=== PATIENT | male | born 1955 | race Caucasian/White ===

== ENCOUNTER 2017-07-13 02:51 | Inpatient (IN) | payer OTHER ==
[~2017-07-13] VITALS: Ht 175.3 cm; Wt 115.0 kg
[2017-07-13 06:06] VITALS: Ht 175.3 cm; Wt 115.0 kg
[2017-07-13 06:18] VITALS: BP 115/53; PULSE 60; RESP 20
[2017-07-13] MEDS ORDERED: BUPR150T18 PO (06:36)
[2017-07-13] MEDS ORDERED: METH10TA2 PO (06:36)
[2017-07-13] MEDS ORDERED: PANT40TA4 PO (06:36)
[2017-07-13] MEDS ORDERED: METH-378 PO (06:36)
[2017-07-13] MEDS ORDERED: FAMO20TA18 PO (06:36)
[2017-07-13] MEDS ORDERED: SPIR25TA PO (06:36)
[2017-07-13] MEDS ORDERED: LACT10SO5 PO (06:36)
[2017-07-13] MEDS ORDERED: FOLI-49 PO (06:36)
[2017-07-13] MEDS ORDERED: FURO40SO PO (06:36)
[2017-07-13] MEDS ORDERED: AMLO5TAB4 PO (06:36)
[2017-07-13] MEDS ORDERED: SENN-53 PO (06:36)
[2017-07-13] MEDS ORDERED: MELA1TAB17 PO (06:36)
[2017-07-13] MEDS ORDERED: [UNRECOGNIZED DRUG - OTHER] (06:36)
[2017-07-13] MEDS ORDERED: DOCU-159 PO (06:36)
[2017-07-13 07:36] VITALS: BP 115/57; RESP 18
[2017-07-13 08:37] LABS: BASOPHILS % 0.2 % (0.0-2.0); EOSINOPHILS # 0.1 10^3/ul (0.0-0.5); EOSINOPHILS % 0.4 % (0.0-7.0); HEMATOCRIT 25.1 % (42.0-52.0); HEMOGLOBIN 8.8 g/dl (14.0-18.0); LYMPHOCYTES # 1.2 10^3/ul (0.8-2.9); LYMPHOCYTES % 10.1 % (15.0-51.0); MEAN CORPUSCULAR HEMOGLOBIN 33.6 pg (29.0-33.0); MEAN CORPUSCULAR HGB CONC 35.1 g/dl (32.0-37.0); MEAN CORPUSCULAR VOLUME 95.8 fl (82.0-101.0); MEAN PLATELET VOLUME 8.7 fl (7.4-10.4); MONOCYTE # 1.2 10^3/ul (0.3-0.9); NEUTROPHIL # 9.2 10^3/ul (1.6-7.5); NEUTROPHILS % 78.7 % (39.0-77.0); PLATELET COUNT 164 10^3/UL (140-415); RED BLOOD COUNT 2.62 10^6/ul (4.70-6.10); RED CELL DISTRIBUTION WIDTH 15.7 % (11.5-14.5); WHITE BLOOD COUNT 11.6 10^3/ul (4.8-10.8)
[2017-07-13 08:50] LABS: ALANINE AMINOTRANSFERASE 31 IU/L (13-69); ALBUMIN 2.1 g/dl (3.3-4.9); ALBUMIN/GLOBULIN RATIO 0.46; ALKALINE PHOSPHATASE 71 IU/L (42-121); ANION GAP 8 (8-16); ASPARTATE AMINO TRANSFERASE 36 IU/L (15-46); BILIRUBIN,INDIRECT 0.6 mg/dl (0-1.1); BILIRUBIN,TOTAL 0.6 mg/dl (0.2-1.3); BLOOD UREA NITROGEN 24 mg/dl (7-20); CALCIUM 8.1 mg/dl (8.4-10.2); CARBON DIOXIDE 29 mmol/L (21-31); CHLORIDE 103 mmol/L (97-110); CREATININE 1.29 mg/dl (0.61-1.24); GLUCOSE 121 mg/dl (70-220); POTASSIUM 4.5 mmol/L (3.5-5.1); SODIUM 135 mmol/L (135-144); TOTAL PROTEIN 6.6 g/dl (6.1-8.1)
[2017-07-13 09:01] LABS: TROPONIN-I < 0.012 ng/ml (0.00-0.12)
[2017-07-13] MEDS ORDERED: PENDING SANTYL ORDER FOR WOUND CARE XX PRN (10:00)
[2017-07-13] MEDS: LACTULOSE 30ML CUP PO SCH ×4 (10:46→21:00)
[2017-07-13] MEDS ORDERED: morphine 2 MG INJ IV PRN (13:30)
[2017-07-13 14:34] VITALS: BP 131/62; RESP 16
[2017-07-13] MEDS ORDERED: METHADONE 5 MG TAB PO ONE ×2 (15:00→21:00)
--- NOTE | 2017-07-13 16:28 | HP ---
Date/Time of Note Date/Time of Note DATE: 07/13/17 TIME: 16:27 Assessment/Plan VTE Prophylaxis VTE Prophylaxis Intervention: SCD's Lines/Catheters IV Catheter Type (from [facility]): Saline Lock Assessment/Plan Assessment/Plan 61-year-old male with: 1. Hepatic encephalopathy, secondary to end-stage liver disease Continue lactulose Check ammonia level and CMP in a.m. Monitor mental status 2. Ascites, status post paracentesis with removal of 6 L of ascitic fluid yesterday, patient still has some distention, will resume diuretics including spironolactone and Lasix as long as renal function and blood pressure tolerates. Sanches catheter placement May need repeat paracentesis in the next 24-48 hours Continue Rocephin for now given slightly elevated white blood cell count, rule out SBP 3. Chronic kidney disease: Creatinine from [place] was 1.46, 1.29 today, resuming diuretics with Sanches catheter in place. 4. Chronic pain, back and abdomen, narcotic dependent, on methadone as an outpatient, will follow pain regimen per outpatient palliative care, will titrate his methadone up as needed for pain control. If needed we will obtain palliative care consult inpatient. 5. Hypertension: D/C Norvasc for now, will maximize diuretics that would also help with blood pressure control and control of ascites. 6. Tobacco use: Nicotine patch as needed. Patient should quit 7. Venous stasis ulcers and bilateral lower extremity lymphedema: Wound care consult in place, volume management. 8. Lung cancer per report, will discuss with which stage, of note the patient is still smoking. 9. Hepatitis C Prophylaxis: Protonix for GI prophylaxis, SCDs to lower extremity for DVT prophylaxis if able to put on Disposition: Pain control, reevaluation in a.m. regarding repeat paracentesis. CODE STATUS: DNR HPI/ROS Admit Date/Time Admit Date/Time Jul 13, 2017 at 05:45 Hx of Present Illness Chief complaint: Abdominal pain, transfer from outside hospital History of presenting illness: This is a 61-year-old male with history of cirrhosis and liver disease, recurrence ascites, hepatic encephalopathy, chronic pain narcotic dependent with previous history of drug use and overdose, who presented at [facility] yesterday with abdominal pain and abdominal distention, he had paracentesis and removal of 6 L of ascitic fluid. In the process he did receive morphine for pain control, by the time he was discharged from the ER according to the family he was mostly pain-free and according to the notes from the emergency department, the patient refused to be admitted then. However when he got home, by 11 PM the reports that to the patient was again in severe pain, but he does have hepatic encephalopathy and has not taken any of his medication for the past 2 days including his methadone. The patient was taken back to [place] emergency department, he was reevaluated and a transferred to [facility] mostly for pain management and further management of his ascites, abdominal distention and hepatic encephalopathy. Ammonia level at admission is 67, patient is on lactulose, he is in significant pain a combination of chronic pain and probable methadone withdrawal. Patient is being restarted on his outpatient regimen with additional morphine for breakthrough pain. Sanches catheter to be placed, ammonia level to be monitored while he is on lactulose, diuretics to be continued, repeat paracentesis in the next 24 hours if needed. I have talked to the and patient's investment recovery technician at the bedside, they agree with the current plan of care. Patient has been told along with his family that we need to restart his methadone if he expects any better pain control. I will also put him on some Rocephin for possible SBP based on slightly elevated white blood cell count on admission. Will monitor closely. ROS Constitutional: disoriented Eyes: no complaints ENT: no complaints Cardiovascular: no complaints Gastrointestinal: other (Distended abdomen), pain (Diffuse abdominal pain) Genitourinary: other (Urinary frequency with some incontinence) Skin: no complaints Neurologic: confusion, other (Encephalopathy) PMH/Family/Social Past Medical History Cirrhosis, end-stage liver disease Hepatic encephalopathy Recurrent ascites Chronic back, abdominal pain on palliative care through [place] pain management, narcotic dependence, on methadone Chronic kidney disease Lung cancer Venous stasis/lymphedema and lower extremity venous stasis ulcers/wounds Hepatitis C Past Surgical History Status post paracentesis 07/12 with removal of 6 L at [facility] Family History Significant Family History: no pertinent family hx Social History Alcohol Use: other (Previous history of alcohol abuse) Smoking Status: Current every day smoker Drug Use: marijuana Exam/Review of Systems Vital Signs Vitals Vital Signs Date Time Temp Pulse Resp B/P Pulse Ox O2 Delivery O2 Flow Rate FiO2 11/13/17 14:34 97.7 72 16 131/62 93 07/13/17 06:18 Room Air Exam Constitutional: alert, distress (Secondary to pain), oriented (x2) Respiratory: clear to auscultation, normal air movement Cardiovascular: nl pulses, regular rate and rhythm Gastrointestinal: distended, soft, tender (Diffuse) Extremities: normal pulses, other (Lymphedema and venous stasis bilateral lower extremity, wrapping in place, patient refused to have his remove it) Neurological: ASSEMBLY OPERATOR II-XII intact, confused, lethargic Labs Result Diagram: 07/13/1780407/13/17804 Medications Medications Current Medications Lactulose (Enulose) 20 gm Q4 PO Last administered on 07/13/17t 10:46; Admin Dose 20 GM; Start 07/13/17 at 09:00 Miscellaneous Information ([facility]) This patient flores... PRN PRN XX WOUND CARE; Start 07/13/17 at 10:00 Methadone HCl (Methadone) 10 mg BID PO ; Start 07/13/17 at 16:00; Status UNV Morphine Sulfate (morphine) 2 mg Q3 PRN IV PAIN LEVEL 6-10; Start 07/13/17 at 18:00 Acetaminophen/ Hydrocodone Bitart ([place] (10/325)) 1 tab Q8H PRN PO PAIN LEVEL 1-5; Start 07/13/17 at 16:30 Carisoprodol (Soma) 350 mg TID PO ; Start 07/13/17 at 21:00; Status UNV Gabapentin (Neurontin) 600 mg TID PO ; Start 07/13/17 at 21:00; Status UNV Ondansetron HCl (Zofran Inj) 4 mg Q6H PRN IV NAUSEA AND/OR VOMITING; Start at 16:30 Acetaminophen (Tylenol Tab) 650 mg Q6H PRN PO PAIN LEVEL 1-3 OR FEVER; Start 07/13/17 at 16:30 Docusate Sodium (Colace) 100 mg Q12H PRN PO CONSTIPATION; Start 07/13/17 at 16 :30 Magnesium Hydroxide (Milk Of Mag) 30 ml DAILY PRN PO CONSTIPATION; Start 07/13 at 16:30 Bisacodyl (Dulcolax Supp) 10 mg DAILY PRN [place] CONSTIPATION; Start 07/13/17 at 16:30 Amlodipine Besylate (Norvasc) 5 mg BID PO ; Start 07/13/17 at 21:00; Status UNV Bupropion HCl (Wellbutrin Sr) 150 mg BID PO ; Start 07/13/17 at 21:00; Status UNV Famotidine (Pepcid) 20 mg BID PO ; Start 07/13/17 at 21:00 Folic Acid (Folic Acid) 1 mg DAILY PO ; Start 07/14/17 at 09:00; Status UNV Senna (Senokot) 1 tab Q12H PRN PO CONSTIPATION; Start 07/13/17 at 16:30; Status UNV Spironolactone 25 mg 25 mg BID PO ; Start 07/13/17 at 21:00; Status UNV Ceftriaxone Sodium (Rocephin) 50 ml @ 100 mls/hr Q24H IVPB ; Start 07/13/17 at 16:30; Status UNV YANDEL SOUZA Jul 13, 2017 16:28
[2017-07-13] MEDS ORDERED: NACL 0.9% 3 ML SYG IV SCH (16:30)
[2017-07-13] MEDS ORDERED: DOCUSATE SODIUM 100 MG CAP PO PRN (16:30)
[2017-07-13] MEDS ORDERED: ACETAMINOPHEN 325 MG TAB PO PRN (16:30)
[2017-07-13] MEDS ORDERED: SENNA TAB PO PRN (16:30)
[2017-07-13] MEDS ORDERED: MAGNESIUM HYDROXIDE 30ML CUP PO PRN (16:30)
[2017-07-13] MEDS ORDERED: BISACODYL 10 MG SUPP PR PRN (16:30)
[2017-07-13] MEDS ORDERED: METHADONE 10 MG TAB PO SCH (17:00)
[2017-07-13] MEDS: CEFTRIAXONE 1 GM/50 ML (PMX) 50 ML IVPB SCH (17:03)
[2017-07-13] MEDS: METHADONE 5 MG TAB PO SCH (17:05)
[2017-07-13] MEDS: FUROSEMIDE 20 MG INJ IV SCH (18:24)
[2017-07-13] MEDS: morphine 2 MG INJ IV PRN ×2 (18:26→23:30)
[2017-07-13 19:49] VITALS: BP 145/70; RESP 20
[2017-07-13] MEDS: FAMOTIDINE 20 MG TAB PO SCH (21:00)
[2017-07-13] MEDS: GABAPENTIN 300 MG CAP PO SCH (21:00)
[2017-07-13] MEDS ORDERED: AMLODIPINE 5 MG TAB PO SCH (21:00)
[2017-07-13] MEDS: CARISOPRODOL 350 MG TAB PO SCH (21:10)
[2017-07-13] MEDS: BUPROPION (SR) 150 MG TAB PO SCH (21:12)
[2017-07-13] MEDS: SPIRONOLACTONE 25 MG TAB PO SCH (21:13)
[2017-07-13] MEDS: HYDROCODONE/APAP (10/325) TAB PO PRN (21:19)
[2017-07-13] MEDS: ONDANSETRON 4 MG INJ IV PRN (21:19)
[2017-07-13 23:20] VITALS: BP 156/70; PULSE 108
[2017-07-14] MEDS: LACTULOSE 30ML CUP PO SCH ×6 (01:00→20:58)
[2017-07-14 02:00] VITALS: BP 142/67; RESP 20
[2017-07-14] MEDS: morphine 2 MG INJ IV PRN ×6 (03:41→22:26)
[2017-07-14] MEDS: HYDROCODONE/APAP (10/325) TAB PO PRN (05:18)
[2017-07-14] MEDS: FUROSEMIDE 20 MG INJ IV SCH ×2 (05:18→17:27)
[2017-07-14] MEDS: ONDANSETRON 4 MG INJ IV PRN ×3 (06:14→21:35)
[2017-07-14 06:41] LABS: ABNORMAL IP MESSAGE 1; BASOPHILS % 0.1 % (0.0-2.0); EOSINOPHILS % 0.1 % (0.0-7.0); HEMATOCRIT 30.8 % (42.0-52.0); HEMOGLOBIN 10.9 g/dl (14.0-18.0); LYMPHOCYTES # 1.1 10^3/ul (0.8-2.9); LYMPHOCYTES % 7.8 % (15.0-51.0); MEAN CORPUSCULAR HEMOGLOBIN 33.6 pg (29.0-33.0); MEAN CORPUSCULAR HGB CONC 35.4 g/dl (32.0-37.0); MEAN CORPUSCULAR VOLUME 95.1 fl (82.0-101.0); MEAN PLATELET VOLUME 9.3 fl (7.4-10.4); MONOCYTE # 1.7 10^3/ul (0.3-0.9); MONOCYTES % 11.3 % (0.0-11.0); NEUTROPHIL # 11.7 10^3/ul (1.6-7.5); NEUTROPHILS % 80.3 % (39.0-77.0); PLATELET COUNT 192 10^3/UL (140-415); POSITIVE DIFF @See below; RED BLOOD COUNT 3.24 10^6/ul (4.70-6.10); RED CELL DISTRIBUTION WIDTH 16.2 % (11.5-14.5); WHITE BLOOD COUNT 14.6 10^3/ul (4.8-10.8)
[2017-07-14 06:50] LABS: INR 1.24; PARTIAL THROMBOPLASTIN TIME 24.9 Sec (25.0-35.0); PROTIME 15.7 Sec (12.2-14.2); PT RATIO 1.2
[2017-07-14] MEDS ORDERED: METHADONE 5 MG TAB PO SCH (09:00)
[2017-07-14] MEDS: GABAPENTIN 300 MG CAP PO SCH ×3 (09:00→13:00)
[2017-07-14 09:13] VITALS: BP 132/62; PULSE 104; RESP 20
[2017-07-14] MEDS: METHADONE 5 MG TAB PO SCH (09:16)
[2017-07-14] MEDS: FAMOTIDINE 20 MG TAB PO SCH ×2 (09:16→20:59)
[2017-07-14] MEDS: SPIRONOLACTONE 25 MG TAB PO SCH ×2 (09:16→20:59)
[2017-07-14] MEDS: FOLIC ACID 1 MG TAB PO SCH (09:16)
[2017-07-14] MEDS: CARISOPRODOL 350 MG TAB PO SCH ×3 (09:16→20:59)
[2017-07-14] MEDS: BUPROPION (SR) 150 MG TAB PO SCH ×2 (09:16→20:59)
[2017-07-14 12:12] LABS: ALBUMIN 2.4 g/dl (3.3-4.9); ALBUMIN/GLOBULIN RATIO 0.5; BILIRUBIN,INDIRECT 0.5 mg/dl (0-1.1); BILIRUBIN,TOTAL 0.5 mg/dl (0.2-1.3); CALCIUM 7.7 mg/dl (8.4-10.2); CREATININE 1.55 mg/dl (0.61-1.24); MAGNESIUM 1.8 mg/dl (1.7-2.5); PHOSPHORUS 4.7 mg/dl (2.5-4.9); POTASSIUM 4.5 mmol/L (3.5-5.1); TOTAL PROTEIN 7.2 g/dl (6.1-8.1)
[2017-07-14] MEDS ORDERED: LIDOCAINE 1% (MPF) 5 ML VIAL ONE (16:28)
[2017-07-14 16:56] LABS: FLD MN% 88.4 %; FLD PMN% 11.6 %; FLD RBC 1000 /uL; FLD WBC 86 /cmm
--- NOTE | 2017-07-14 17:12 | RADRPT ---
PROCEDURE: Ultrasound guided paracentesis. CLINICAL INDICATION: Ascites and shortness of breath. COMPARISON: No prior studies are available for comparison. TECHNIQUE: The risks, benefits, and alternatives were explained to the patient and/or the patient's family, inc luding but not limited to bleeding, infection, pain, visceral or vascular damage, shock, and . The patient and/or the patient's family understood the risks and the alternatives and wished to pro ceed with the procedure. Informed written consent was obtained. A procedural time out was performed . The patient's name, date of , and procedure to be performed were verified. Utilizing ultrasound guidance, optimal location for entry to the peritoneal cavity was ascertained. The overlying skin was prepped and draped in the usual sterile fashion. Approximately 10 ml of 1% Xylocaine was injected locally for pain control. Using ultrasound guidance, an 8 [place] catheter wa s introduced into the peritoneal cavity in the right lower quadrant without difficulty. FINDINGS: Initial images demonstrate ascites. Approximately 12.6 liters of serous fluid was aspirated and sen t for laboratory analysis. The patient tolerated the procedure well without complication. IMPRESSION: 1. Successful ultrasound-guided paracentesis. RPTAT: QQ .Nikita Dave MD, Date Time Electronically viewed and signed by .Nikita Dave MD, on 07/14/2017 17:12 .R/
--- NOTE | 2017-07-14 17:24 | PN ---
Date/Time of Note Date/Time of Note DATE: 07/14/17 TIME: 17:22 Assessment/Plan VTE Prophylaxis VTE Prophylaxis Intervention: SCD's Lines/Catheters [facility] Saline Lock Urinary Cath still in place: Yes Reason Cath still needed: terminal illness/intractable pain, other (indicate) ( While diuresing.) Assessment/Plan Assessment/Plan 61-year-old male with: 1. Hepatic encephalopathy, secondary to end-stage liver disease, ammonia up to 82. Continue lactulose and will add rifaximin while inpatient Check ammonia level and CMP in a.m. Monitor mental status 2. Ascites, status post paracentesis with removal of 6 L of ascitic fluid 07/12 , status post repeat paracentesis at [facility] with removal of 12.6 L today Continue diuretics including spironolactone and Lasix as long as renal function and blood pressure tolerates. Continue Rocephin and follow up on ascitic fluid studies and cell count. 3. Chronic kidney disease: Continue diuretics as long as tolerated, creatinine up to 1.55 today. Sanches catheter in place 4. Chronic pain, back and abdomen, narcotic dependent, on methadone as an outpatient, will follow pain regimen per outpatient palliative care, Methadone has been increased to 40 mg twice daily after confirmation, continue as needed morphine and [place]. After discussion with the patient's primary insurance it was confirmed that he was already approached by outpatient palliative care and hospice, [facility]. Patient seems to be more comfortable post paracentesis today. 5. Hypertension: Continue diuretics that would also help with blood pressure control and control of ascites. Patient also getting albumin post large volume paracentesis 6. Tobacco use: Nicotine patch as needed. Patient should quit 7. Venous stasis ulcers and bilateral lower extremity lymphedema: Wound care consult in place, volume management. 8. Lung cancer, discussed with , patient does have metastatic lung cancer apparently, he is not a candidate for chemotherapy any further due to liver failure and end-stage liver disease. Patient is still smoking. 9. Hepatitis C Prophylaxis: Protonix for GI prophylaxis, SCDs to lower extremity for DVT prophylaxis if able to put on. Disposition: Pain control, hospice evaluation with the [facility]. CODE STATUS: DNR Subjective 24 Hr Interval Summary Free Text/Dictation Patient is currently sleeping, comfortable, his methadone has been adjusted to 40 mg twice daily per outpatient prescription, he is also getting as needed [place] and as needed morphine. Status post paracentesis with removal of 12.6 L. He is getting albumin post paracentesis currently. He is sleeping, comfortable. I had a discussion with the patient's , she does agree and understands hospice, however the patient has declined hospice last time. The reason for declining at that time with the fact that the patient was not able to see his doctors and also he still wants to get regular paracentesis for comfort. Exam/Review of Systems Vital Signs Vitals Vital Signs Date Time Temp Pulse Resp B/P Pulse Ox O2 Delivery O2 Flow Rate FiO2 07/14/17 09:13 98.4 104 20 132/62 91 Room Air Intake and Output 07/13/17 07/13/17 07/14/17 15:00 23:00 07:00 Intake Total 490 ml 240 ml Output Total 900 ml Balance 490 ml -660 ml Exam Constitutional: other (Currently sleeping, comfortable post paracentesis) Respiratory: clear to auscultation, normal air movement Cardiovascular: nl pulses, regular rate and rhythm Gastrointestinal: hepatomegaly, other (Much less distended), soft Musculoskeletal: other (Lower extremity wrapping) Extremities: normal pulses Neurological: lethargic, other (Sleeping) Results Ammonia 82 Result Diagram: 07/14/17 0552 07/14/17 1107 Results 24 hrs Laboratory Tests Test 07/14/17 05:52 07/14/17 05:57 07/14/17 11:07 White Blood Count 14.6 #H Red Blood Count 3.24 #L Hemoglobin 10.9 #L Hematocrit 30.8 #L Mean Corpuscular Volume 95.1 Mean Corpuscular Hemoglobin 33.6 H Mean Corpuscular Hemoglobin Concent 35.4 Red Cell Distribution Width 16.2 H Platelet Count 192 Mean Platelet Volume 9.3 Neutrophils % 80.3 H Lymphocytes % 7.8 L Monocytes % 11.3 H Eosinophils % 0.1 Basophils % 0.1 Nucleated Red Blood Cells % 0.0 Neutrophils # 11.7 H Lymphocytes # 1.1 Monocytes # 1.7 H Eosinophils # 0.0 Basophils # 0.0 Nucleated Red Blood Cells # 0.0 Prothrombin Time 15.7 H Prothrombin Time Ratio 1.2 INR International Normalized Ratio 1.24 Activated Partial Thromboplast Time 24.9 L Sodium Level 134 L Potassium Level 4.5 Chloride Level 99 Carbon Dioxide Level 21 Anion Gap 19 #H Blood Urea Nitrogen 31 H Creatinine 1.55 H Glucose Level 140 Calcium Level 7.7 L Phosphorus Level 4.7 Magnesium Level 1.8 Total Bilirubin 0.5 Direct Bilirubin 0.00 Indirect Bilirubin 0.5 Aspartate Amino Transf (AST/SGOT) 39 Alanine Aminotransferase (ALT/SGPT) 28 Alkaline Phosphatase 71 Ammonia 82 H Total Protein 7.2 Albumin 2.4 L Globulin 4.80 H Albumin/Globulin Ratio 0.50 Medications Medications Current Medications Lactulose (Enulose) 20 gm Q4 PO Last administered on 07/14/17 12:42; Admin Dose 20 GM; Start 07/13/17 at 09:00 Miscellaneous Information (Pending [facility] Order For Wound Care) This patient flores... PRN PRN XX WOUND CARE; Start 07/13/17 at 10:00 Morphine Sulfate (morphine) 2 mg Q3 PRN IV PAIN LEVEL 6-10 Last administered on 07/14/17 12:42; Admin Dose 2 MG; Start 07/13/17 at 18:00 Acetaminophen/ Hydrocodone Bitart ([place] (10/325)) 1 tab Q8H PRN PO PAIN LEVEL 1-5 Last administered on 07/14/17 05:18; Admin Dose 1 TAB; Start 07/13/17 at 16:30 Carisoprodol (Soma) 350 mg TID PO Last administered on 07/14/17 12:42; Admin Dose 350 MG; Start 07/13/17 at 21:00 Ondansetron HCl (Zofran Inj) 4 mg Q6H PRN IV NAUSEA AND/OR VOMITING Last administered on 07/14/17 13:30; Admin Dose 4 MG; Start 07/13/17 at 16:30 Acetaminophen (Tylenol Tab) 650 mg Q6H PRN PO PAIN LEVEL 1-3 OR FEVER; Start 07/13/17 at 16:30 Docusate Sodium (Colace) 100 mg Q12H PRN PO CONSTIPATION; Start 07/13/17 at 16 :30 Magnesium Hydroxide (Milk Of Mag) 30 ml DAILY PRN PO CONSTIPATION; Start 07/13 at 16:30 Bisacodyl (Dulcolax Supp) 10 mg DAILY PRN [place] CONSTIPATION; Start 07/13/17 at 16:30 Bupropion HCl (Wellbutrin Sr) 150 mg BID PO Last administered on 07/14/17 09: 16; Admin Dose 150 MG; Start 07/13/17 at 21:00 Famotidine (Pepcid) 20 mg BID PO Last administered on 07/14/17 09:16; Admin Dose 20 MG; Start 07/13/17 at 21:00 Folic Acid (Folic Acid) 1 mg DAILY PO Last administered on 07/14/17 09:16; Admin Dose 1 MG; Start 07/14/17 at 09:00 Senna (Senokot) 1 tab Q12H PRN PO CONSTIPATION; Start 07/13/17 at 16:30 Spironolactone 25 mg 25 mg BID PO Last administered on 07/14/17 09:16; Admin Dose 25 MG; Start 07/13/17 at 21:00 Ceftriaxone Sodium (Rocephin) 50 ml @ 100 mls/hr Q24H IVPB Last administered on 07/13/17 17:03; Admin Dose 100 MLS/HR; Start 07/13/17 at 17:00 Methadone HCl 40 mg 40 mg BID PO ; Start 07/14/17 at 21:00 Albumin Human (Albumin Human 25%) 100 ml @ 100 mls/hr Q1H IV ; Start 07/14/17 at 17:00; Stop 07/14/17 at 18:59 Procedures Procedures PROCEDURE: Ultrasound guided paracentesis. CLINICAL INDICATION: Ascites and shortness of breath. COMPARISON: No prior studies are available for comparison. TECHNIQUE: The risks, benefits, and alternatives were explained to the patient and/or the patient's family, including but not limited to bleeding, infection, pain, visceral or vascular damage, shock, and . The patient and/or the patient' s family understood the risks and the alternatives and wished to proceed with the procedure. Informed written consent was obtained. A procedural time out was performed. The patient's name, date of , and procedure to be performed were verified. Utilizing ultrasound guidance, optimal location for entry to the peritoneal cavity was ascertained. The overlying skin was prepped and draped in the usual sterile fashion. Approximately 10 ml of 1% Xylocaine was injected locally for pain control. Using ultrasound guidance, an 8 [place] catheter was introduced into the peritoneal cavity in the right lower quadrant without difficulty. FINDINGS: Initial images demonstrate ascites. Approximately 12.6 liters of serous fluid was aspirated and sent for laboratory analysis. The patient tolerated the procedure well without complication. IMPRESSION: 1. Successful ultrasound-guided paracentesis. RPTAT: QQ .Nikita Dave MD, MD Date Time Electronically viewed and signed by .Nikita Dave MD, MD on 07/14/2017 17:12 YANDEL SOUZA Jul 14, 2017 17:24
[2017-07-14] MEDS: CEFTRIAXONE 1 GM/50 ML (PMX) 50 ML IVPB SCH (17:28)
[2017-07-14 17:31] LABS: FLUID LD 281 U/L; FLUID TOTAL PROTEIN < 2.0 g/dl; FLUID TYPE FLUID
[2017-07-14 17:32] VITALS: BP 131/60; RESP 20
[2017-07-14 17:41] LABS: FLD CLARITY HAZY; FLD COLOR YELLOW; FLD TYPE ASCITES
[2017-07-14] MEDS: ALBUMIN HUMAN 25% 100 ML IV SCH ×2 (18:09→18:57)
[2017-07-14 20:02] VITALS: BP 134/63; RESP 20
[2017-07-14] MEDS: RIFAXIMIN 550 MG TAB PO SCH (20:59)
[2017-07-14] MEDS: METHADONE 10 MG TAB PO SCH (21:36)
[2017-07-15] MEDS: LACTULOSE 30ML CUP PO SCH ×7 (01:45→21:37)
[2017-07-15 02:28] VITALS: BP 120/58; RESP 20
[2017-07-15] MEDS: FUROSEMIDE 20 MG INJ IV SCH ×2 (05:48→18:33)
[2017-07-15] MEDS: morphine 2 MG INJ IV PRN ×6 (07:04→21:52)
[2017-07-15 07:51] VITALS: BP 129/63; RESP 20
[2017-07-15] MEDS: SPIRONOLACTONE 25 MG TAB PO SCH ×2 (08:35→21:37)
[2017-07-15] MEDS: RIFAXIMIN 550 MG TAB PO SCH ×2 (08:35→21:38)
[2017-07-15] MEDS: FAMOTIDINE 20 MG TAB PO SCH ×2 (08:35→21:37)
[2017-07-15] MEDS: CARISOPRODOL 350 MG TAB PO SCH ×3 (08:35→22:51)
[2017-07-15] MEDS: FOLIC ACID 1 MG TAB PO SCH (08:35)
[2017-07-15] MEDS: BUPROPION (SR) 150 MG TAB PO SCH ×2 (08:35→21:37)
[2017-07-15] MEDS: METHADONE 10 MG TAB PO SCH ×2 (08:35→22:51)
[2017-07-15 09:38] LABS: BASOPHILS % 0.2 % (0.0-2.0); EOSINOPHILS # 0.1 10^3/ul (0.0-0.5); EOSINOPHILS % 1.3 % (0.0-7.0); HEMATOCRIT 26.9 % (42.0-52.0); HEMOGLOBIN 9.4 g/dl (14.0-18.0); LYMPHOCYTES # 1.8 10^3/ul (0.8-2.9); MEAN CORPUSCULAR HEMOGLOBIN 33.8 pg (29.0-33.0); MEAN CORPUSCULAR HGB CONC 34.9 g/dl (32.0-37.0); MEAN CORPUSCULAR VOLUME 96.8 fl (82.0-101.0); MEAN PLATELET VOLUME 8.6 fl (7.4-10.4); MONOCYTE # 1.4 10^3/ul (0.3-0.9); MONOCYTES % 13.1 % (0.0-11.0); NEUTROPHIL # 7.4 10^3/ul (1.6-7.5); NEUTROPHILS % 67.8 % (39.0-77.0); PLATELET COUNT 178 10^3/UL (140-415); RED BLOOD COUNT 2.78 10^6/ul (4.70-6.10); RED CELL DISTRIBUTION WIDTH 15.4 % (11.5-14.5); WHITE BLOOD COUNT 10.8 10^3/ul (4.8-10.8)
[2017-07-15 10:00] LABS: ALBUMIN 2.4 g/dl (3.3-4.9); ALBUMIN/GLOBULIN RATIO 0.6; BILIRUBIN,INDIRECT 0.3 mg/dl (0-1.1); BILIRUBIN,TOTAL 0.3 mg/dl (0.2-1.3); CREATININE 1.52 mg/dl (0.61-1.24); POTASSIUM 3.6 mmol/L (3.5-5.1); TOTAL PROTEIN 6.4 g/dl (6.1-8.1)
[2017-07-15 10:03] LABS: MAGNESIUM 1.9 mg/dl (1.7-2.5); PHOSPHORUS 3.9 mg/dl (2.5-4.9)
[2017-07-15] MEDS ORDERED: PENDING SANTYL ORDER FOR WOUND CARE XX PRN (10:30)
[2017-07-15] MEDS: ONDANSETRON 4 MG INJ IV PRN ×3 (10:43→22:49)
[2017-07-15] MEDS: NICOTINE (21 MG/24 HR) PATCH TRANSDERM SCH (10:46)
[2017-07-15 13:58] VITALS: BP 140/65; RESP 18
[2017-07-15] MEDS: HYDROCODONE/APAP (10/325) TAB PO PRN (15:37)
--- NOTE | 2017-07-15 15:52 | PN ---
Date/Time of Note Date/Time of Note DATE: 07/15/17 TIME: 15:52 Assessment/Plan VTE Prophylaxis VTE Prophylaxis Intervention: SCD's Lines/Catheters IV Catheter Type (from [facility]): Port A Cath Urinary Cath still in place: Yes Reason Cath still needed: terminal illness/intractable pain, other (indicate) ( Diuresis, acute kidney injury, end-stage liver disease) Assessment/Plan Assessment/Plan 61-year-old male with: 1. Hepatic encephalopathy, secondary to end-stage liver disease, ammonia down to 60 today however unclear if is going to be able to tolerate oral lactulose and rifaximin any longer. For now will continue. Check ammonia level and CMP in a.m. Monitor mental status 2. Ascites, status post paracentesis with removal of 6 L of ascitic fluid 07/12 , status post repeat paracentesis at [facility] with removal of 12.6 L yesterday Continue diuretics including spironolactone and Lasix as long as renal function and blood pressure tolerates. Continue Rocephin for total of 5 days, per ascitic fluid studies no signs of SBP and cultures negative so far. 3. Chronic kidney disease: Continue diuretics as long as tolerated, creatinine up to 1.50 today. Sanches catheter in place 4. Chronic pain, back and abdomen, narcotic dependent, on methadone as an outpatient, will follow pain regimen per outpatient palliative care, Methadone has been increased to 40 mg twice daily after confirmation, continue as needed morphine and [place]. After discussion with the patient's primary insurance it was confirmed that he was already approached by outpatient palliative care and hospice, [facility]. Again they have come to the bedside today and the patient and the patient's are refusing to commit to hospice until they talk to palliative care physician and myself. Patient seems to be more comfortable post paracentesis yesterday, he was able to discuss his goals of care today, he seems to be primary leaning toward comfort measures. Definitely wants his pain controlled. 5. Hypertension: Continue diuretics that would also help with blood pressure control and control of ascites. 6. Tobacco use: Nicotine patch as needed. 7. Venous stasis ulcers and bilateral lower extremity lymphedema: Patient wound care recommendation, compression wrapping have been re-done today. 8. Lung cancer, discussed with , patient does have metastatic lung cancer apparently, he is not a candidate for chemotherapy any further due to liver failure and end-stage liver disease. Patient is still smoking. 9. Hepatitis C and end-stage liver disease: Most appropriate for comfort measures. Prophylaxis: Protonix for GI prophylaxis, SCDs to lower extremity for DVT prophylaxis if able to put on. Disposition: Pain control, DNR, palliative care consult for pain management and also clarify goals of care and possibly progressed to comfort measures. Will notify [facility] once final decision regarding home hospice versus [facility] depending on the patient's condition and pain control requirements. CODE STATUS: DNR Subjective 24 Hr Interval Summary Free Text/Dictation Patient much more awake today, he has voiced multiple time and while being lucid that he would like to be comfortable and "he is ready to be with his God" , while I was talking to him, he does have multiple episodes of vomiting with large bilious amount. It is unclear if he is absorbing or tolerating his lactulose but rifaximin has been added as of yesterday. Will increase his narcotics IV, palliative care will be consulted. I have approached the previous hospice company that has seen him, however it seems to be some communication or trust issues therefore the patient and his are refusing to commit until talking to additional doctors including myself and palliative care. Exam/Review of Systems Vital Signs Vitals Vital Signs Date Time Temp Pulse Resp B/P Pulse Ox O2 Delivery O2 Flow Rate FiO2 07/15/17 13:58 98.5 78 18 140/65 97 07/14/17 09:13 Room Air Intake and Output 07/14/17 07/14/17 07/15/17 15:00 23:00 07:00 Intake Total 250 ml 200 ml Output Total 1300 ml Balance 250 ml -1100 ml Exam Constitutional: alert, oriented (x3), other (Distended abdomen) Respiratory: diminished breath sounds (At the bases), normal air movement Cardiovascular: nl pulses, regular rate and rhythm Gastrointestinal: ascites, distended (Abdomen, seems to be reaccumulating his ascites already), soft, tender (Some diffuse tenderness of his abdomen as distention increased) Musculoskeletal: nl extremities to inspection, other (He does have lymphedema wrapping in his lower extremities) Extremities: normal pulses Neurological: LOAD BLOCKER II-XII intact, lethargic, nl mental status (Lucid today) Results Result Diagram: 07/15/17 0853 07/15/17 0853 Results 24 hrs Laboratory Tests Test 07/14/17 16:00 07/15/17 08:53 Body Fluid Type ASCITES Body Fluid Volume 1000.0 Body Fluid Color YELLOW Body Fluid Appearance HAZY Body Fluid WBC 86 Body Fluid RBC (Auto) 1000 Body Fluid Polynuclear WBCs (%) 11.6 Body Fluid Mononuclear Cells % Auto 88.4 Body Fluid Total Protein < 2.0 Body Fluid Lactate Dehydrogenase 281 White Blood Count 10.8 # Red Blood Count 2.78 L Hemoglobin 9.4 L Hematocrit 26.9 L Mean Corpuscular Volume 96.8 Mean Corpuscular Hemoglobin 33.8 H Mean Corpuscular Hemoglobin Concent 34.9 Red Cell Distribution Width 15.4 H Platelet Count 178 Mean Platelet Volume 8.6 Neutrophils % 67.8 Lymphocytes % 17.0 Monocytes % 13.1 H Eosinophils % 1.3 Basophils % 0.2 Nucleated Red Blood Cells % 0.0 Neutrophils # 7.4 Lymphocytes # 1.8 Monocytes # 1.4 H Eosinophils # 0.1 Basophils # 0.0 Nucleated Red Blood Cells # 0.0 Sodium Level 136 Potassium Level 3.6 Chloride Level 100 Carbon Dioxide Level 26 Anion Gap 14 Blood Urea Nitrogen 31 H Creatinine 1.52 H Glucose Level 112 Calcium Level 8.0 L Phosphorus Level 3.9 Magnesium Level 1.9 Total Bilirubin 0.3 Direct Bilirubin 0.00 Indirect Bilirubin 0.3 Aspartate Amino Transf (AST/SGOT) 24 Alanine Aminotransferase (ALT/SGPT) 30 Alkaline Phosphatase 65 Ammonia 60 H Total Protein 6.4 Albumin 2.4 L Globulin 4.00 H Albumin/Globulin Ratio 0.60 Medications Medications Current Medications Lactulose (Enulose) 20 gm Q4 PO Last administered on 07/15/17 13:31; Admin Dose 20 GM; Start 07/13/17 at 09:00 Miscellaneous Information (Pending [facility] Order For Wound Care) This patient flores... PRN PRN XX WOUND CARE; Start 07/13/17 at 10:00 Morphine Sulfate (morphine) 2 mg Q3 PRN IV PAIN LEVEL 6-10 Last administered on 07/15/17 13:31; Admin Dose 2 MG; Start 07/13/17 at 18:00 Acetaminophen/ Hydrocodone Bitart (Letart ()) 1 tab Q8H PRN PO PAIN LEVEL 1-5 Last administered on 07/15/17 15:37; Admin Dose 1 TAB; Start 07/13/17 at 16:30 Carisoprodol (Soma) 350 mg TID PO Last administered on 07/15/17 13:31; Admin Dose 350 MG; Start 07/13/17 at 21:00 Ondansetron HCl (Zofran Inj) 4 mg Q6H PRN IV NAUSEA AND/OR VOMITING Last administered on 07/15/17 10:43; Admin Dose 4 MG; Start 07/13/17 at 16:30 Acetaminophen (Tylenol Tab) 650 mg Q6H PRN PO PAIN LEVEL 1-3 OR FEVER; Start 07/13/17 at 16:30 Docusate Sodium (Colace) 100 mg Q12H PRN PO CONSTIPATION; Start 07/13/17 at 16 :30 Magnesium Hydroxide (Milk Of Mag) 30 ml DAILY PRN PO CONSTIPATION; Start 07/13 at 16:30 Bisacodyl (Dulcolax Supp) 10 mg DAILY PRN [place] CONSTIPATION; Start 07/13/17 at 16:30 Bupropion HCl (Wellbutrin Sr) 150 mg BID PO Last administered on 07/15/17 08: 35; Admin Dose 150 MG; Start 07/13/17 at 21:00 Famotidine (Pepcid) 20 mg BID PO Last administered on 07/15/17 08:35; Admin Dose 20 MG; Start 07/13/17 at 21:00 Folic Acid (Folic Acid) 1 mg DAILY PO Last administered on 07/15/17 08:35; Admin Dose 1 MG; Start 07/14/17 at 09:00 Senna (Senokot) 1 tab Q12H PRN PO CONSTIPATION; Start 07/13/17 at 16:30 Spironolactone 25 mg 25 mg BID PO Last administered on 07/15/17 08:35; Admin Dose 25 MG; Start 07/13/17 at 21:00 Ceftriaxone Sodium (Rocephin) 50 ml @ 100 mls/hr Q24H IVPB Last administered on 07/14/17 17:28; Admin Dose 100 MLS/HR; Start 07/13/17 at 17:00 Methadone HCl (Methadone) 40 mg BID PO Last administered on 07/15/17 08:35; Admin Dose 40 MG; Start 07/14/17 at 21:00 Rifaximin (Xifaxan) 550 mg BID PO Last administered on 07/15/17 08:35; Admin Dose 550 MG; Start 07/14/17 at 21:00 Miscellaneous [facility] This patient flores... PRN PRN XX WOUND CARE; Start 07/15/17 at 10:30 Nicotine (Nicoderm 21 Mg/ 24hr) 1 patch DAILY TRANSDERM Last administered on 10:46; Admin Dose 1 PATCH; Start 07/15/17 at 10:30 YANDEL SOUZA Jul 15, 2017 15:52
[2017-07-15] MEDS: CEFTRIAXONE 1 GM/50 ML (PMX) 50 ML IVPB SCH (16:30)
[2017-07-15 20:00] VITALS: BP 132/61; RESP 16
[2017-07-15] MEDS ORDERED: ONDANSETRON 4 MG INJ IV PRN (21:00)
[2017-07-16] MEDS: LACTULOSE 30ML CUP PO SCH ×6 (01:00→20:13)
[2017-07-16 02:00] VITALS: BP 135/63; RESP 16
[2017-07-16] MEDS: ONDANSETRON 4 MG INJ IV PRN (05:03)
[2017-07-16] MEDS: morphine 2 MG INJ IV PRN ×4 (05:04→17:06)
[2017-07-16] MEDS: FUROSEMIDE 20 MG INJ IV SCH ×2 (05:05→17:06)
[2017-07-16 06:23] LABS: BASOPHILS % 0.3 % (0.0-2.0); EOSINOPHILS # 0.2 10^3/ul (0.0-0.5); EOSINOPHILS % 1.7 % (0.0-7.0); HEMATOCRIT 28.9 % (42.0-52.0); HEMOGLOBIN 10.1 g/dl (14.0-18.0); LYMPHOCYTES # 2.5 10^3/ul (0.8-2.9); LYMPHOCYTES % 19.9 % (15.0-51.0); MEAN CORPUSCULAR HEMOGLOBIN 33.4 pg (29.0-33.0); MEAN CORPUSCULAR HGB CONC 34.9 g/dl (32.0-37.0); MEAN CORPUSCULAR VOLUME 95.7 fl (82.0-101.0); MEAN PLATELET VOLUME 8.8 fl (7.4-10.4); MONOCYTE # 1.3 10^3/ul (0.3-0.9); MONOCYTES % 10.1 % (0.0-11.0); NEUTROPHIL # 8.5 10^3/ul (1.6-7.5); NEUTROPHILS % 66.9 % (39.0-77.0); PLATELET COUNT 201 10^3/UL (140-415); RED BLOOD COUNT 3.02 10^6/ul (4.70-6.10); RED CELL DISTRIBUTION WIDTH 15.2 % (11.5-14.5); WHITE BLOOD COUNT 12.7 10^3/ul (4.8-10.8)
[2017-07-16 07:07] LABS: ALBUMIN 2.5 g/dl (3.3-4.9); ALBUMIN/GLOBULIN RATIO 0.6; BILIRUBIN,INDIRECT 0.3 mg/dl (0-1.1); BILIRUBIN,TOTAL 0.3 mg/dl (0.2-1.3); CALCIUM 8.1 mg/dl (8.4-10.2); CREATININE 1.52 mg/dl (0.61-1.24); POTASSIUM 3.7 mmol/L (3.5-5.1); TOTAL PROTEIN 6.6 g/dl (6.1-8.1)
[2017-07-16 07:41] VITALS: BP 127/59; RESP 20
[2017-07-16] MEDS: CARISOPRODOL 350 MG TAB PO SCH ×3 (08:40→20:11)
[2017-07-16] MEDS: BUPROPION (SR) 150 MG TAB PO SCH ×2 (08:40→20:11)
[2017-07-16] MEDS: NICOTINE (21 MG/24 HR) PATCH TRANSDERM SCH (08:41)
[2017-07-16] MEDS: SPIRONOLACTONE 25 MG TAB PO SCH ×2 (08:41→20:13)
[2017-07-16] MEDS: FAMOTIDINE 20 MG TAB PO SCH ×2 (08:41→20:13)
[2017-07-16] MEDS: FOLIC ACID 1 MG TAB PO SCH (08:41)
[2017-07-16] MEDS: RIFAXIMIN 550 MG TAB PO SCH ×2 (08:41→20:13)
[2017-07-16] MEDS: METHADONE 10 MG TAB PO SCH ×2 (08:47→20:13)
[2017-07-16 13:26] VITALS: BP 127/70; RESP 20
--- NOTE | 2017-07-16 15:28 | PN ---
Date/Time of Note Date/Time of Note DATE: 07/16/17 TIME: 15:11 Assessment/Plan VTE Prophylaxis VTE Prophylaxis Intervention: SCD's Lines/Catheters IV Catheter Type (from Nrs): port a cath Urinary Cath still in place: Yes Reason Cath still needed: other (indicate) (for comfort ) Assessment/Plan Assessment/Plan 61-year-old male with: 1. Hepatic encephalopathy, secondary to end-stage liver disease, ammonia down to 52 today however Patient still agreeable to take lactulose and rifaximin with family at bedside. Check ammonia level and CMP in a.m. Monitor mental status 2. Ascites, status post paracentesis with removal of 6 L of ascitic fluid 07/12 , status post repeat paracentesis at [facility] with removal of 12.6 L on 07/14, will discuss PleurX catheter placement for comfort, if agreeable, order has been put in, I had a discussion with IR and patient is being placed n.p.o. after midnight for the procedure to be done tomorrow. Continue diuretics including spironolactone and Lasix as long as renal function and blood pressure tolerates. Continue Rocephin for total of 5 days, per ascitic fluid studies NO signs of SBP and cultures negative so far. 3. Chronic kidney disease: Continue diuretics as long as tolerated, creatinine up to 1.50 today. Sanches catheter in place 4. Chronic pain, back and abdomen, narcotic dependent, on methadone as an outpatient, will follow pain regimen per outpatient palliative care, Methadone has been increased to 40 mg twice daily after confirmation, continue as needed morphine and [place]. The patient today, is open to meet with [facility], meeting is ongoing currently. Patient seems to be more comfortable post paracentesis 07/14, family and friends are leaning toward comfort measures. Patient definitely wants his pain controlled. 5. Hypertension: Continue diuretics that would also help with blood pressure control and control of ascites. 6. Tobacco use: Nicotine patch as needed. 7. Venous stasis ulcers and bilateral lower extremity lymphedema: Patient wound care recommendation, compression wrapping have been re-done today. 8. Lung cancer, discussed with , patient does have metastatic lung cancer apparently, he is not a candidate for chemotherapy any further due to liver failure and end-stage liver disease. Patient is still smoking. 9. Hepatitis C and end-stage liver disease: Most appropriate for comfort measures. Prophylaxis: Protonix for GI prophylaxis, SCDs to lower extremity for DVT prophylaxis if able to put on. Disposition: Pain control, DNR, palliative care consult for pain management and also clarify goals of care and possibly progressed to comfort measures. Family today agreeable to meet with [facility], planning to place PleurX catheter tomorrow for comfort and drainage of ascites. CODE STATUS: DNR Subjective 24 Hr Interval Summary Free Text/Dictation Patient looks comfortable currently sitting up in chair and doozing off Family and friends at bedside [facility] on floor for meeting, also may consider PleurX catheter placement for Ascites management on comfort care/hospice Exam/Review of Systems Vital Signs Vitals Vital Signs Date Time Temp Pulse Resp B/P Pulse Ox O2 Delivery O2 Flow Rate FiO2 07/16/17 13:26 97.7 97 20 127/70 98 07/14/17 09:13 Room Air Intake and Output 07/15/17 07/15/17 07/16/17 15:00 23:00 07:00 Intake Total 470 ml 720 ml Output Total 2800 ml 800 ml Balance -2330 ml -80 ml Exam Constitutional: alert (on/off ), frail, other (lethargic ) Respiratory: clear to auscultation, normal air movement Cardiovascular: nl pulses, regular rate and rhythm Gastrointestinal: distended, soft Musculoskeletal: nl extremities to inspection, nl gait and stance Extremities: normal pulses Neurological: [employer] OPERATOR II-XII intact, lethargic, nl speech Results Result Diagram: 07/16/17 0538 07/16/17 0538 Results 24 hrs Laboratory Tests Test 07/16/17 05:38 White Blood Count 12.7 H Red Blood Count 3.02 L Hemoglobin 10.1 L Hematocrit 28.9 L Mean Corpuscular Volume 95.7 Mean Corpuscular Hemoglobin 33.4 H Mean Corpuscular Hemoglobin Concent 34.9 Red Cell Distribution Width 15.2 H Platelet Count 201 Mean Platelet Volume 8.8 Neutrophils % 66.9 Lymphocytes % 19.9 Monocytes % 10.1 Eosinophils % 1.7 Basophils % 0.3 Nucleated Red Blood Cells % 0.0 Neutrophils # 8.5 H Lymphocytes # 2.5 Monocytes # 1.3 H Eosinophils # 0.2 Basophils # 0.0 Nucleated Red Blood Cells # 0.0 Sodium Level 134 L Potassium Level 3.7 Chloride Level 98 Carbon Dioxide Level 28 Anion Gap 12 Blood Urea Nitrogen 31 H Creatinine 1.52 H Glucose Level 102 Calcium Level 8.1 L Total Bilirubin 0.3 Direct Bilirubin 0.00 Indirect Bilirubin 0.3 Aspartate Amino Transf (AST/SGOT) 26 Alanine Aminotransferase (ALT/SGPT) 21 Alkaline Phosphatase 67 Ammonia 52 H Total Protein 6.6 Albumin 2.5 L Globulin 4.10 H Albumin/Globulin Ratio 0.60 Medications Medications Current Medications Lactulose (Enulose) 20 gm Q4 PO Last administered on 07/16/17 13:01; Admin Dose 20 GM; Start 07/13/17 at 09:00 Miscellaneous Information (Pending [facility] Order For Wound Care) This patient flores... PRN PRN XX WOUND CARE; Start 07/13/17 at 10:00 Acetaminophen/ Hydrocodone Bitart ([place] (10/325)) 1 tab Q8H PRN PO PAIN LEVEL 1-5 Last administered on 07/15/17 15:37; Admin Dose 1 TAB; Start 07/13/17 at 16:30 Carisoprodol (Soma) 350 mg TID PO Last administered on 07/16/17 13:01; Admin Dose 350 MG; Start 07/13/17 at 21:00 Acetaminophen (Tylenol Tab) 650 mg Q6H PRN PO PAIN LEVEL 1-3 OR FEVER; Start 07/13/17 at 16:30 Docusate Sodium (Colace) 100 mg Q12H PRN PO CONSTIPATION; Start 07/13/17 at 16 :30 Magnesium Hydroxide (Milk Of Mag) 30 ml DAILY PRN PO CONSTIPATION; Start 07/13 at 16:30 Bisacodyl (Dulcolax Supp) 10 mg DAILY PRN [place] CONSTIPATION; Start 07/13/17 at 16:30 Bupropion HCl (Wellbutrin Sr) 150 mg BID PO Last administered on 07/16/17 08: 40; Admin Dose 150 MG; Start 07/13/17 at 21:00 Famotidine (Pepcid) 20 mg BID PO Last administered on 07/16/17 08:41; Admin Dose 20 MG; Start 07/13/17 at 21:00 Folic Acid (Folic Acid) 1 mg DAILY PO Last administered on 07/16/17 08:41; Admin Dose 1 MG; Start 07/14/17 at 09:00 Senna (Senokot) 1 tab Q12H PRN PO CONSTIPATION; Start 07/13/17 at 16:30 Spironolactone 25 mg 25 mg BID PO Last administered on 07/16/17 08:41; Admin Dose 25 MG; Start 07/13/17 at 21:00 Ceftriaxone Sodium (Rocephin) 50 ml @ 100 mls/hr Q24H IVPB Last administered on 07/15/17 16:30; Admin Dose 100 MLS/HR; Start 07/13/17 at 17:00 Methadone HCl (Methadone) 40 mg BID PO Last administered on 07/16/17 08:47; Admin Dose 40 MG; Start 07/14/17 at 21:00 Rifaximin (Xifaxan) 550 mg BID PO Last administered on 07/16/17 08:41; Admin Dose 550 MG; Start 07/14/17 at 21:00 Miscellaneous Information (Pending [facility] Order For Wound Care) This patient flores... PRN PRN XX WOUND CARE; Start 07/15/17 at 10:30 Nicotine (Nicoderm 21 Mg/ 24hr) 1 patch DAILY TRANSDERM Last administered on 08:41; Admin Dose 1 PATCH; Start 07/15/17 at 10:30 Morphine Sulfate (morphine) 4 mg Q3 PRN IV PAIN LEVEL 6-10 Last administered on 07/16/17 13:02; Admin Dose 4 MG; Start 07/15/17 at 17:00 Ondansetron HCl (Zofran Inj) 4 mg Q4 PRN IV NAUSEA AND/OR VOMITING Last administered on 07/16/17 05:03; Admin Dose 4 MG; Start 07/15/17 at 17:30 YANDEL SOUZA Jul 16, 2017 15:23 YANDEL SOUZA Jul 16, 2017 15:23
[2017-07-16] MEDS: CEFTRIAXONE 1 GM/50 ML (PMX) 50 ML IVPB SCH (17:06)
[2017-07-16 20:00] VITALS: BP 120/59; RESP 16
[2017-07-16] MEDS ORDERED: morphine LIQ (20 MG/ML PO SYG) SL PRN (22:30)
[2017-07-17] MEDS ORDERED: LORAZEPAM 1 MG TAB PO PRN
[2017-07-17] MEDS: LACTULOSE 30ML CUP PO SCH ×6 (00:56→16:17)
[2017-07-17 02:00] VITALS: BP 119/58; RESP 16
[2017-07-17] MEDS: FUROSEMIDE 20 MG INJ IV SCH (06:00)
[2017-07-17 06:16] LABS: ABNORMAL IP MESSAGE 1; BASOPHIL # 0.1 10^3/ul (0.0-0.1); BASOPHILS % 0.7 % (0.0-2.0); EOSINOPHILS # 0.4 10^3/ul (0.0-0.5); EOSINOPHILS % 2.2 % (0.0-7.0); HEMOGLOBIN 11.7 g/dl (14.0-18.0); LYMPHOCYTES # 3.5 10^3/ul (0.8-2.9); LYMPHOCYTES % 19.1 % (15.0-51.0); MEAN CORPUSCULAR HEMOGLOBIN 31.5 pg (29.0-33.0); MEAN CORPUSCULAR HGB CONC 33.4 g/dl (32.0-37.0); MEAN CORPUSCULAR VOLUME 94.1 fl (82.0-101.0); MEAN PLATELET VOLUME 8.8 fl (7.4-10.4); MONOCYTE # 2.1 10^3/ul (0.3-0.9); MONOCYTES % 11.6 % (0.0-11.0); NEUTROPHIL # 11.3 10^3/ul (1.6-7.5); NEUTROPHILS % 61.7 % (39.0-77.0); PLATELET COUNT 240 10^3/UL (140-415); POSITIVE DIFF @See below; RED BLOOD COUNT 3.72 10^6/ul (4.70-6.10); RED CELL DISTRIBUTION WIDTH 15.2 % (11.5-14.5); WHITE BLOOD COUNT 18.4 10^3/ul (4.8-10.8)
[2017-07-17 06:42] LABS: INR 1.42; PROTIME 17.4 Sec (12.2-14.2); PT RATIO 1.4
[2017-07-17 06:43] LABS: PARTIAL THROMBOPLASTIN TIME 32.6 Sec (25.0-35.0)
[2017-07-17 06:52] LABS: ALBUMIN 2.7 g/dl (3.3-4.9); ALBUMIN/GLOBULIN RATIO 0.57; BILIRUBIN,INDIRECT 0.4 mg/dl (0-1.1); BILIRUBIN,TOTAL 0.4 mg/dl (0.2-1.3); CALCIUM 8.7 mg/dl (8.4-10.2); CREATININE 2.59 mg/dl (0.61-1.24); POTASSIUM 3.7 mmol/L (3.5-5.1); TOTAL PROTEIN 7.4 g/dl (6.1-8.1)
[2017-07-17] MEDS: NICOTINE (21 MG/24 HR) PATCH TRANSDERM SCH (09:12)
[2017-07-17] MEDS: METHADONE 10 MG TAB PO SCH (09:15)
[2017-07-17] MEDS: FAMOTIDINE 20 MG TAB PO SCH (09:15)
[2017-07-17] MEDS: FOLIC ACID 1 MG TAB PO SCH (09:15)
[2017-07-17] MEDS: CARISOPRODOL 350 MG TAB PO SCH ×2 (09:15→12:52)
[2017-07-17] MEDS: RIFAXIMIN 550 MG TAB PO SCH (09:15)
[2017-07-17] MEDS: SPIRONOLACTONE 25 MG TAB PO SCH (09:15)
[2017-07-17] MEDS: BUPROPION (SR) 150 MG TAB PO SCH (09:15)
[2017-07-17] MEDS: HYDROCODONE/APAP (10/325) TAB PO PRN (09:18)
[2017-07-17 09:43] VITALS: BP 127/65; RESP 20
--- NOTE | 2017-07-17 10:08 | PDOCDIS ---
Discharge Instructions CONDITION Patient Condition: Guarded HOME CARE INSTRUCTIONS: Special Diet: Soft Diet FOLLOW UP/APPOINTMENTS Follow-up Plan Discharge on hospice with YANDEL HE Jul 17, 2017 10:08
--- NOTE | 2017-07-17 11:45 | PN ---
Date/Time of Note Date/Time of Note DATE: 07/17/17 TIME: :14 Assessment/Plan VTE Prophylaxis VTE Prophylaxis Intervention: SCD's Lines/Catheters IV Catheter Type (from Nrsg): port a cath Central line still needed: Yes (for Palliation/comfort) Urinary Cath still in place: No Assessment/Plan Assessment/Plan 61-year-old male with: 1. Hepatic encephalopathy, secondary to end-stage liver disease, ammonia down to 52 today however, patient more lethargic but also on higher doses of narcotics as comfort measures/hospice care. Patient on lactulose and rifaximin may not be able to tolerate in the near future as he is declining DNR, comfort measures, discharge home with hospice today after paracentesis 2. Ascites, status post paracentesis with removal of 6 L of ascitic fluid 07/12 , status post repeat paracentesis at [facility] with removal of 12.6 L on 07/14, Unable to have PleurX catheter placement because patient has declined clinically , he is the laboratory data are getting worse, he seems to be progressing to hepatorenal syndrome. He will have another paracentesis today to relieve some of the pain and intra-abdominal pressure, but at this point we do not recommend for any further paracentesis or Pleurx catheter placement, patient needs to be made comfortable through hospice care. Patient and patient's , Trudi have been updated at bedside. [facility] Hospice has been updated, plan is for the patient to be discharged home after paracentesis today. Both patient's family and hospice agreeable with this plan. Will D/C Rocephin at discharge today 3. Chronic kidney disease: Continue diuretics as long as tolerated, creatinine up to 1.50 today. Renal function worsened this morning, patient has been voiding Sanches catheter has been removed yesterday per patient's request 4. Chronic pain, back and abdomen, narcotic dependent, on methadone as an outpatient, will follow pain regimen per outpatient palliative care, Methadone has been increased to 40 mg twice daily after confirmation, continue as needed morphine and Joppa. The patient has been signed up with [facility] hospice and plan for discharge home after paracentesis today. Patient getting another paracentesis for comfort today. After that recommend no further paracentesis and just focus on comfort measures. 5. Hypertension: Comfort measures 6. Tobacco use: Comfort measures 7. Venous stasis ulcers and bilateral lower extremity lymphedema: Comfort measures. 8. Lung cancer, discussed with , patient does have metastatic lung cancer apparently, he is not a candidate for chemotherapy any further due to liver failure and end-stage liver disease. Comfort measures. 9. Hepatitis C and end-stage liver disease: Comfort measures. Prophylaxis: Protonix for GI prophylaxis, SCDs to lower extremity for DVT prophylaxis if able to put on. Disposition: Pain control, DNR, patient signed up with [facility] hospice, getting paracentesis for comfort today prior to discharge home. Not a candidate for Plavix currently due to decline. Subjective 24 Hr Interval Summary Free Text/Dictation Patient renal function has dropped, leukocytosis is noted, possible hepatorenal syndrome and he is definitely more lethargic noted this morning but still able to participate in conversations. Discussed with IR, not stable enough from a laboratory data to Pleurx catheter therefore we have converted to ultrasound- guided paracentesis as much as patient can tolerate. I have updated the and discussed with the , patient will be discharged after paracentesis today. [facility] Hospice will take care of discharge. DNR Exam/Review of Systems Vital Signs Vitals Vital Signs Date Time Temp Pulse Resp B/P Pulse Ox O2 Delivery O2 Flow Rate FiO2 07/17/17 09:43 98.2 98 20 127/65 95 07/14/17 09:13 Room Air Intake and Output 07/16/17 07/16/17 07/17/17 15:00 23:00 07:00 Intake Total 1050 ml 580 ml Output Total 300 ml Balance 750 ml 580 ml Exam Constitutional: alert, oriented (x2), other (Lethargic) Respiratory: clear to auscultation, normal air movement Cardiovascular: nl pulses, regular rate and rhythm Gastrointestinal: ascites (Moderate ascites recurrent already), distended, soft , tender (Diffuse) Musculoskeletal: nl extremities to inspection Extremities: normal pulses Neurological: PAYROLL COORDINATOR II-XII intact, lethargic Results Result Diagram: 07/17/17 0607/17/17 06 Results 24 hrs Laboratory Tests Test 07/17/17 06:01 White Blood Count 18.4 #H Red Blood Count 3.72 #L Hemoglobin 11.7 L Hematocrit 35.0 #L Mean Corpuscular Volume 94.1 Mean Corpuscular Hemoglobin 31.5 Mean Corpuscular Hemoglobin Concent 33.4 Red Cell Distribution Width 15.2 H Platelet Count 240 Mean Platelet Volume 8.8 Neutrophils % 61.7 Lymphocytes % 19.1 Monocytes % 11.6 H Eosinophils % 2.2 Basophils % 0.7 Nucleated Red Blood Cells % 0.0 Neutrophils # 11.3 H Lymphocytes # 3.5 H Monocytes # 2.1 H Eosinophils # 0.4 Basophils # 0.1 Nucleated Red Blood Cells # 0.0 Prothrombin Time 17.4 H Prothrombin Time Ratio 1.4 INR International Normalized Ratio 1.42 Activated Partial Thromboplast Time 32.6 Sodium Level 134 L Potassium Level 3.7 Chloride Level 96 L Carbon Dioxide Level 26 Anion Gap 16 Blood Urea Nitrogen 37 H Creatinine 2.59 #H Glucose Level 118 Calcium Level 8.7 Total Bilirubin 0.4 Direct Bilirubin 0.00 Indirect Bilirubin 0.4 Aspartate Amino Transf (AST/SGOT) 34 Alanine Aminotransferase (ALT/SGPT) 25 Alkaline Phosphatase 70 Total Protein 7.4 Albumin 2.7 L Globulin 4.70 H Albumin/Globulin Ratio 0.57 Medications Medications Current Medications Lactulose (Enulose) 20 gm Q4 PO Last administered on 07/17/17 05:24; Admin Dose 20 GM; Start 07/13/17 at 09:00 Miscellaneous Information (Pending [facility] Order For Wound Care) This patient flores... PRN PRN XX WOUND CARE; Start 07/13/17 at 10:00 Acetaminophen/ Hydrocodone Bitart (Joppa (10/325)) 1 tab Q8H PRN PO PAIN LEVEL 1-5 Last administered on 07/17/17 09:18; Admin Dose 1 TAB; Start 07/13/17 at 16:30 Carisoprodol (Soma) 350 mg TID PO Last administered on 07/17/17 09:15; Admin Dose 350 MG; Start 07/13/17 at 21:00 Acetaminophen (Tylenol Tab) 650 mg Q6H PRN PO PAIN LEVEL 1-3 OR FEVER; Start 07/13/17 at 16:30 Docusate Sodium (Colace) 100 mg Q12H PRN PO CONSTIPATION; Start 07/13/17 at 16 :30 Magnesium Hydroxide (Milk Of Mag) 30 ml DAILY PRN PO CONSTIPATION; Start 07/13 at 16:30 Bisacodyl (Dulcolax Supp) 10 mg DAILY PRN AL CONSTIPATION; Start 07/13/17 at 16:30 Bupropion HCl (Wellbutrin Sr) 150 mg BID PO Last administered on 07/17/17 09: 15; Admin Dose 150 MG; Start 07/13/17 at 21:00 Famotidine (Pepcid) 20 mg BID PO Last administered on 07/17/17 09:15; Admin Dose 20 MG; Start 07/13/17 at 21:00 Folic Acid (Folic Acid) 1 mg DAILY PO Last administered on 07/17/17 09:15; Admin Dose 1 MG; Start 07/14/17 at 09:00 Senna (Senokot) 1 tab Q12H PRN PO CONSTIPATION; Start 07/13/17 at 16:30 Spironolactone 25 mg 25 mg BID PO Last administered on 07/17/17 09:15; Admin Dose 25 MG; Start 07/13/17 at 21:00 Ceftriaxone Sodium (Rocephin) 50 ml @ 100 mls/hr Q24H IVPB Last administered on 07/16/17 17:06; Admin Dose 100 MLS/HR; Start 07/13/17 at 17:00 Methadone HCl (Methadone) 40 mg BID PO Last administered on 07/17/17 09:15; Admin Dose 40 MG; Start 07/14/17 at 21:00 Rifaximin (Xifaxan) 550 mg BID PO Last administered on 07/17/17 09:15; Admin Dose 550 MG; Start 07/14/17 at 21:00 Miscellaneous Information (Pending [facility] Order For Wound Care) This patient flores... PRN PRN XX WOUND CARE; Start 07/15/17 at 10:30 Nicotine (Nicoderm 21 Mg/ 24hr) 1 patch DAILY TRANSDERM Last administered on 09:12; Admin Dose 1 PATCH; Start 07/15/17 at 10:30 Morphine Sulfate (morphine) 4 mg Q3 PRN IV PAIN LEVEL 6-10 Last administered on 07/16/17 17:06; Admin Dose 4 MG; Start 07/15/17 at 17:00 Ondansetron HCl (Zofran Inj) 4 mg Q4 PRN IV NAUSEA AND/OR VOMITING Last administered on 07/16/17 05:03; Admin Dose 4 MG; Start 07/15/17 at 17:30 Morphine Sulfate (Roxanol) 2 mg Q4H PRN SL PAIN Last administered on 23:14; Admin Dose 2 MG; Start 07/16/17 at 22:30 Lorazepam (Ativan) 1 mg Q8H PRN PO ANXIETY Last administered on 07/16/17 23: 49; Admin Dose 1 MG; Start 07/17/17 at 00:00 YANDEL SOUZA Jul 17, 2017 11:24
[2017-07-17] MEDS ORDERED: METH10TA2 PO (11:48)
[2017-07-17] MEDS ORDERED: LACT20SO2 PO (11:48)
[2017-07-17] MEDS ORDERED: RIFA550T4 PO (11:48)
[2017-07-17] MEDS ORDERED: LIDOCAINE 1% (MPF) 5 ML VIAL ONE (11:56)
[2017-07-17 12:54] VITALS: BP 115/56; PULSE 94
[2017-07-17 13:29] VITALS: BP 116/57; RESP 18
[2017-07-17] MEDS: morphine 2 MG INJ IV PRN ×2 (13:52→16:53)
--- NOTE | 2017-07-17 14:24 | RADRPT ---
PROCEDURE: Ultrasound guided paracentesis. CLINICAL INDICATION: Ascites and shortness of breath. COMPARISON: 07/14/2017. TECHNIQUE: The risks, benefits, and alternatives were explained to the patient and/or the patient's family, inc luding but not limited to bleeding, infection, pain, visceral or vascular damage, shock, and . The patient and/or the patient's family understood the risks and the alternatives and wished to pro ceed with the procedure. Informed written consent was obtained. A procedural time out was performed . The patient's name, date of , and procedure to be performed were verified. Utilizing ultrasound guidance, optimal location for entry to the peritoneal cavity was ascertained. The overlying skin was prepped and draped in the usual sterile fashion. Approximately 10 ml of 1% Xylocaine was injected locally for pain control. Using ultrasound guidance, an 8 Israeli catheter wa s introduced into the peritoneal cavity in the right lower quadrant without difficulty. FINDINGS: Initial images demonstrate ascites. Approximately 9.0 liters of serous fluid was aspirated and disc arded. The patient tolerated the procedure well without complication. IMPRESSION: 1. Successful ultrasound-guided paracentesis. RPTAT: QQ .Nikita Dave MD, Date Time Electronically viewed and signed by .Nikita Dave MD, on 07/17/2017 14:24 .R/
[2017-07-17] MEDS: CEFTRIAXONE 1 GM/50 ML (PMX) 50 ML IVPB SCH (16:18)
[2017-07-18] MEDS ORDERED: FAMOTIDINE 20 MG TAB PO SCH (09:00)
--- NOTE | 2017-07-28 17:34 | DS ---
Date/Time of Note Date/Time of Note DATE: 07/28/17 TIME: : Discharge Summary Admission/Discharge Info Admit Date/Time Jul 13, 2017 at 05:45 Discharge Date/Time Jul 17, 2017 at 17:50 Discharge Diagnosis 1. Hepatic encephalopathy, secondary to end-stage liver disease, 2. Ascites, status post paracentesis with removal of 6 L of ascitic fluid 07/12 , status post repeat paracentesis at [facility] with removal of 12.6 L on 07/14 3. Chronic kidney disease 4. Chronic pain, back and abdomen, narcotic dependent, on methadone as an outpatient. 5. Hypertension 6. Tobacco use 7. Venous stasis ulcers and bilateral lower extremity lymphedema 8. Lung cancer, discussed with , patient does have metastatic lung cancer apparently, he is not a candidate for chemotherapy any further due to liver failure and end-stage liver disease. 9. Hepatitis C and end-stage liver disease 10. Comfort measures, home hospice Patient Condition: Serious Consults Hospice, [facility] Procedures Large volume paracentesis 2 Hx of Present Illness Chief complaint: Abdominal pain, transfer from outside hospital History of presenting illness: This is a 61-year-old male with history of cirrhosis and liver disease, recurrence ascites, hepatic encephalopathy, chronic pain narcotic dependent with previous history of drug use and overdose, who presented at [facility] yesterday with abdominal pain and abdominal distention, he had paracentesis and removal of 6 L of ascitic fluid. In the process he did receive morphine for pain control, by the time he was discharged from the ER according to the family he was mostly pain-free and according to the notes from the emergency department, the patient refused to be admitted then. However when he got home, by 11 PM the reports that to the patient was again in severe pain, but he does have hepatic encephalopathy and has not taken any of his medication for the past 2 days including his methadone. The patient was taken back to [facility] emergency department, he was reevaluated and a transferred to [facility] mostly for pain management and further management of his ascites, abdominal distention and hepatic encephalopathy. Ammonia level at admission is 67, patient is on lactulose, he is in significant pain a combination of chronic pain and probable methadone withdrawal. Patient is being restarted on his outpatient regimen with additional morphine for breakthrough pain. Sanches catheter to be placed, ammonia level to be monitored while he is on lactulose, diuretics to be continued, repeat paracentesis in the next 24 hours if needed. I have talked to the and patient's thoracic surgeon at the bedside, they agree with the current plan of care. Patient has been told along with his family that we need to restart his methadone if he expects any better pain control. I will also put him on some Rocephin for possible SBP based on slightly elevated white blood cell count on admission. Will monitor closely. Hospital Course Patient was started on rifaximin, lactulose was continued, his ammonia level started trending down slowly, however despite diuretics he really accumulated his ascites pretty quickly requiring 2 large volume paracentesis or period of 4 days with removal of 10+ L of ascitic fluids each time. Patient has severe pain narcotic dependent, he does have lung cancer metastatic also. According to the she is a DNR. Patient has been approached by hospice as an outpatient but was uncertain regarding his goals of care. However on this admission he was pretty adamant he wanted to be comfortable from now on. We have attempted to place a Pleurx but unfortunately unable to do so due to his coagulopathy. By the time of discharge his renal function started declining also likely secondary to hepatorenal syndrome. Patient was more lethargic and the family already come to terms with the goals of care which will be comfort measures from now on. Hospice was consulted, [facility] saw and evaluated the patient for home hospice. Patient was discharged home with home hospice and comfort measures on 07/17 after paracentesis was done for comfort. He was also treated for suspected SBP during this admission. Home Meds Active Scripts Rifaximin* (Xifaxan*) 550 Mg Tablet, 550 MG PO BID for 30 Days, TAB Prov:YANDEL SOUZA 07/17/17 Lactulose* (Lactulose*) 20 Gm/30 Ml Solution, 20 GM PO Q4 for 30 Days Prov:YANDEL SOUZA 07/17/17 Methadone Hcl* (Methadone*) 10 Mg Tab, 40 MG PO BID for 30 Days, TAB Prov:YANDEL SOUZA 07/17/17 Reported Medications Sennosides* (Senna Lax*) 8.6 Mg Tablet, 1 TAB PO Q12H Y for CONSTIPATION, TAB 07/13/17 Melatonin-Pyridoxine Hcl (Melatonin) 10-10 Mg Tab.mphase, 1 TAB PO HS Y for SLEEP, TAB 07/13/17 Folic Acid* (Folic Acid*) 1 Mg Tablet, 1 MG PO DAILY, TAB 07/13/17 Bupropion Hcl* (Bupropion Hcl SR*) 150 Mg Tablet.er, 150 MG PO BID, TAB.SA 07/13/17 Pantoprazole (Protonix) 40 Mg Tabec, 40 MG PO DAILY, TAB 07/13/17 Follow-up Plan Discharge on hospice with [facility] Primary Care Provider Not On Staff Doctor Time spent on discharge: > 30 minutes YANDEL SOUZA Jul 28, 2017 17:34
== END 2017-07-17 17:50 | disposition hospice, home (50) | DRG 433 ==
LOC: MS2 05:45
PROVIDERS: ADMIT Internal Medicine; ATTEND Internal Medicine
PROC: 0W9G3ZX Drainage of Peritoneal Cavity, Percutaneous Approach, Diagnostic (ICD-10-PCS; principal; 2017-07-14)
PROC: 0W9G3ZZ Drainage of Peritoneal Cavity, Percutaneous Approach (ICD-10-PCS; 2017-07-17)
DX: K74.60 Unspecified cirrhosis of liver (principal); C34.90 Malignant neoplasm of unspecified part of unspecified bronchus or lung; R18.8 Other ascites; F11.20 Opioid dependence, uncomplicated; I83.018 Varicose veins of right lower extremity with ulcer other part of lower leg; I83.028 Varicose veins of left lower extremity with ulcer other part of lower leg; I12.9 Hypertensive chronic kidney disease with stage 1 through stage 4 chronic kidney disease, or unspecified chronic kidney disease; K72.10 Chronic hepatic failure without coma; N18.9 Chronic kidney disease, unspecified; B19.20 Unspecified viral hepatitis C without hepatic coma; I89.0 Lymphedema, not elsewhere classified; B18.2 Chronic viral hepatitis C; F17.210 Nicotine dependence, cigarettes, uncomplicated; G89.29 Other chronic pain; I87.8 Other specified disorders of veins; Z51.5 Encounter for palliative care
CPT/HCPCS: 80053; 82140; 83615; 83735; 84100; 84157; 84484; 85025; 85610; 85730; 87070; 87081; 87102; 87116; 88104; 88305; 89051; J1940; J0696; J2270; J2405; P9047